=== PATIENT | female | born 1990 | race Caucasian/White ===

== ENCOUNTER 2018-03-17 09:52 | Inpatient (IN) | payer MEDICAID ==
[~2018-03-17 09:52] MED LIST: EPHEDrine SULFATE 50 MG/5 ML SYG
[2018-03-17] MEDS ORDERED: MISOPROSTOL 200 MCG TAB PR ×2 (10:30→17:30)
[2018-03-17] MEDS ORDERED: METHYLERGONOVINE 0.2 MG INJ IM ×2 (10:30→17:30)
[2018-03-17] MEDS ORDERED: OXYTOCIN 30 UNITS/LR 500 ML IV ×3 (10:30→17:30)
[2018-03-17] MEDS ORDERED: CARBOPROST 250 MCG INJ IM ×2 (10:30→17:30)
[2018-03-17 10:43] LABS: ADD MAN DIFF? NO
[2018-03-17 10:47] LABS: WHITE BLOOD COUNT 9.4 10^3/ul (4.8-10.8)
[2018-03-17 10:47] LABS: BASOPHILS % 0.3 % (0.0-2.0); EOSINOPHILS # 0.1 10^3/ul (0.0-0.5); EOSINOPHILS % 0.6 % (0.0-7.0); HEMATOCRIT 36.8 % (37.0-47.0); HEMOGLOBIN 12.5 g/dl (12.0-16.0); LYMPHOCYTES # 1.5 10^3/ul (0.8-2.9); LYMPHOCYTES % 16.2 % (15.0-51.0); MEAN CORPUSCULAR HEMOGLOBIN 28.6 pg (29.0-33.0); MEAN CORPUSCULAR VOLUME 84.2 fl (82.0-101.0); MEAN PLATELET VOLUME 11.2 fl (7.4-10.4); MONOCYTE # 0.5 10^3/ul (0.3-0.9); NEUTROPHIL # 7.3 10^3/ul (1.6-7.5); NEUTROPHILS % 77.6 % (39.0-77.0); PLATELET COUNT 224 10^3/UL (140-415); RED BLOOD COUNT 4.37 10^6/ul (4.20-5.40); RED CELL DISTRIBUTION WIDTH 13.1 % (11.5-14.5)
[2018-03-17 11:06] LABS: INR 0.88; PARTIAL THROMBOPLASTIN TIME 26.2 Sec (25.0-35.0); PT RATIO 0.9
[2018-03-17] MEDS: LACTATED RINGER'S 1,000 ML IV* ×2 (11:59→12:20)
[2018-03-17] MEDS ORDERED: BUPIVACAINE 0.75%/DEXT (SPINAL) 2 ML INJ (12:47)
[2018-03-17] MEDS ORDERED: morphine SULFATE/PF (10 MG/10 ML) INJ (12:47)
[2018-03-17] MEDS ORDERED: PHENYLephrine (100 MCG/ML) 5ML SYG ×3 (12:56→14:03)
[2018-03-17] MEDS: CEFAZOLIN 2 GM/50 ML (PMX) 50 ML IV (12:56)
[2018-03-17] MEDS ORDERED: ONDANSETRON 4 MG INJ (13:39)
[2018-03-17] MEDS ORDERED: FENTAnyl 50 MCG/ML VIAL (13:39)
[2018-03-17] MEDS ORDERED: OXYTOCIN 10 UNIT INJ (14:11)
[2018-03-17] MEDS ORDERED: ONDANSETRON 4 MG INJ IV ×2 (14:30)
[2018-03-17] MEDS ORDERED: ALBUTEROL 0.083% (NEB) 2.5 MG/3 ML AMP HHN (14:30)
[2018-03-17] MEDS ORDERED: NALOXONE (0.4 MG/ML) INJ IV (14:30)
[2018-03-17] MEDS ORDERED: HYDROmorphONE 0.5 MG/0.5 ML SYG IV ×2 (14:30)
[2018-03-17] MEDS ORDERED: METOCLOPRAMIDE 10 MG INJ IV (14:30)
[2018-03-17] MEDS ORDERED: HYDROmorphONE 1 MG/5 ML IV SYRINGE IV ×3 (14:30)
[2018-03-17] MEDS ORDERED: DIPHENHYDRAMINE 50 MG INJ IV ×2 (14:30)
[2018-03-17] MEDS ORDERED: FENTAnyl 50 MCG/ML VIAL IV ×2 (14:30)
[2018-03-17 14:57] LABS: RAPID PLASMA REAGIN NONREACTIVE (NR)
[2018-03-17 15:09] LABS: HEPATITIS B SURFACE ANTIGEN NEGATIVE (NEGATIVE)
[2018-03-17] MEDS ORDERED: HYDROCODONE/APAP (5/325) TAB PO ×2 (17:30)
[2018-03-17] MEDS ORDERED: OXYCODONE/ACETAMINOPHEN (5/325) TAB PO ×2 (17:30)
[2018-03-17] MEDS: IBUPROFEN 600 MG TAB PO (18:00)
[2018-03-17] MEDS: CEFAZOLIN 1 GM/50 ML (PMX) 50 ML IVPB (18:33)
[2018-03-17] MEDS: OXYTOCIN 30 UNITS/LR 500 ML IV (19:06)
[2018-03-17] MEDS: SENNA/DOCUSATE NA (8.6MG/50MG) TAB PO (21:00)
[2018-03-18] MEDS: KETOROLAC 30 MG INJ IV ×2 (00:01→12:22)
[2018-03-18] MEDS: OXYTOCIN 30 UNITS/LR 500 ML IV (00:01)
[2018-03-18] MEDS: LACTATED RINGER'S 1,000 ML IV (03:22)
[2018-03-18] MEDS: IBUPROFEN 600 MG TAB PO ×4 (06:00→17:51)
[2018-03-18 08:34] LABS: ADD MAN DIFF? NO
[2018-03-18 08:39] LABS: WHITE BLOOD COUNT 12.6 10^3/ul (4.8-10.8)
[2018-03-18 08:39] LABS: BASOPHILS % 0.2 % (0.0-2.0); EOSINOPHILS # 0.1 10^3/ul (0.0-0.5); EOSINOPHILS % 0.6 % (0.0-7.0); HEMATOCRIT 34.7 % (37.0-47.0); HEMOGLOBIN 11.6 g/dl (12.0-16.0); LYMPHOCYTES # 1.3 10^3/ul (0.8-2.9); LYMPHOCYTES % 10.5 % (15.0-51.0); MEAN CORPUSCULAR HEMOGLOBIN 28.8 pg (29.0-33.0); MEAN CORPUSCULAR HGB CONC 33.4 g/dl (32.0-37.0); MEAN CORPUSCULAR VOLUME 86.1 fl (82.0-101.0); MEAN PLATELET VOLUME 11.6 fl (7.4-10.4); MONOCYTE # 0.8 10^3/ul (0.3-0.9); MONOCYTES % 5.9 % (0.0-11.0); NEUTROPHIL # 10.4 10^3/ul (1.6-7.5); NEUTROPHILS % 82.5 % (39.0-77.0); PLATELET COUNT 192 10^3/UL (140-415); RED BLOOD COUNT 4.03 10^6/ul (4.20-5.40); RED CELL DISTRIBUTION WIDTH 13.1 % (11.5-14.5)
[2018-03-18] MEDS: SENNA/DOCUSATE NA (8.6MG/50MG) TAB PO ×2 (09:44→21:33)
[2018-03-19] MEDS: IBUPROFEN 600 MG TAB PO ×4 (00:07→18:05)
[2018-03-19] MEDS: SENNA/DOCUSATE NA (8.6MG/50MG) TAB PO ×2 (09:35→21:29)
[2018-03-20] MEDS: IBUPROFEN 600 MG TAB PO ×3 (00:21→12:19)
[2018-03-20] MEDS: LANOLIN 7 GM TUBE TOP (00:21)
[2018-03-20] MEDS: DIPHTH/TET/ACEL PERTUSS (ADULT) 0.5 ML VIAL IM* (09:41)
[2018-03-20] MEDS: SENNA/DOCUSATE NA (8.6MG/50MG) TAB PO (09:41)
== END 2018-03-20 15:59 | disposition home or self-care (01) | DRG 766 ==
LOC: L-D 09:52 → PP1 16:46
PROVIDERS: Obstetrics & Gynecology
PROC: 10D00Z1 Extraction of Products of Conception, Low, Open Approach (ICD-10-PCS; principal; 2018-03-17 12:30)
DX: O34.219 Maternal care for unspecified type scar from previous cesarean delivery (principal); O32.8XX0 Maternal care for other malpresentation of fetus, not applicable or unspecified; Z3A.39 39 weeks gestation of pregnancy; Z37.0 Single live birth
CPT/HCPCS: 85025; 85610; 85730; 86592; 86850; 86900; 86901; 87340; 99464